=== PATIENT | female | born 1980 | race African-American/Black ===

== ENCOUNTER 2017-05-12 21:17 | Inpatient (IN) | payer BC ==
[2017-05-12 22:53] LABS: ABSOLUTE LYMPHOCYTES (AUTO) 0.6 10^3/uL (0.5-4.7); ABSOLUTE MONOCYTES (AUTO) 0.1 10^3/uL (0.1-1.4); ABSOLUTE NEUT (AUTO) 3.4 10^3/uL (1.7-8.2); BASOPHILS % (AUTO) 0.4 % (0-2); HEMATOCRIT 38.9 % (36.0-47.0); HEMOGLOBIN 12.7 g/dL (12.0-15.5); HGB HCT DIFFERENCE -0.8; LYMPHOCYTES % (AUTO) 14.7 % (13-45); MEAN CORPUSCULAR HEMOGLOBIN 24.4 pg (27.0-33.4); MEAN CORPUSCULAR HGB CONC 32.7 g/dL (32.0-36.0); MEAN CORPUSCULAR VOLUME 75 fl (80-97); MONOCYTES % (AUTO) 3.6 % (3-13); RED BLOOD COUNT 5.21 10^6/uL (3.72-5.28); SEGMENTED NEUTROPHILS % (AUTO) 80.3 % (42-78); WHITE BLOOD COUNT 4.2 10^3/uL (4.0-10.5)
--- NOTE | 2017-05-12 23:15 | ER Document Report ---
ED Fever - General Chief Complaint: Fever Stated Complaint: MUSCLE ACHES Time Seen by Provider: 05/12/17 23:14 Notes: The patient is a 36-year-old female who presents with 1 day of a fever, headache , neck stiffness and body aches that started after she was at her daughter's soccer game yesterday. 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 She is having worsening neck stiffness and pain when she turns her head or moves her hips. She is also having mild dysuria. Denies nausea, vomiting, blurry vision, focal weakness, numbness, tingling, ataxia, rash, recent travel or altered mental status. TRAVEL OUTSIDE OF THE [place] IN LAST 30 DAYS: No - Related Data Allergies/Adverse Reactions: Sulfa (Sulfonamide Antibiotics) Adverse Reaction (Verified 05/12/17 21:51) HEADACHE Past Medical History - General Information source: Patient - Social History Smoking Status: Never Smoker Family History: Reviewed & Not Pertinent Patient has suicidal ideation: No Patient has homicidal ideation: No - Past Medical History Cardiac Medical History: Denies: Hx Coronary Artery Disease, Hx Heart Attack, Hx Hypertension Pulmonary Medical History: Denies: Hx Asthma, Hx Bronchitis, Hx COPD, Hx Pneumonia Neurological Medical History: Denies: Hx Cerebrovascular Accident, Hx Seizures Renal/ Medical History: Denies: Hx Peritoneal Dialysis GI Medical History: Reports: Hx Gastroesophageal Reflux Disease. Denies: Hx Hepatitis, Hx Hiatal Hernia, Hx Ulcer Musculoskeltal Medical History: Denies Hx Arthritis Infectious Medical History: Denies: Hx Hepatitis Past Surgical History: Reports: Hx Section, Hx Tubal Ligation. Denies : Hx Hysterectomy, Hx Mastectomy, Hx Open Heart Surgery, Hx Pacemaker - Immunizations Hx Diphtheria, Pertussis, Tetanus Vaccination: Yes Review of Systems - Review of Systems Notes: REVIEW OF SYSTEMS: CONSTITUTIONAL: +fevers, -chills EENT: -eye pain, -difficulty swallowing, -nasal congestion CARDIOVASCULAR:-chest pain, -syncope. RESPIRATORY: -cough, -SOB GASTROINTESTINAL: -abdominal pain, - nausea, -vomiting, -diarrhea GENITOURINARY: -dysuria, -hematuria MUSCULOSKELETAL: +neck stiffness, -back pain SKIN: -rash or skin lesions. HEMATOLOGIC: -easy bruising or bleeding. LYMPHATIC: -swollen, enlarged glands. NEUROLOGICAL: -altered mental status or loss of consciousness, +headache, - neurologic symptoms PSYCHIATRIC: -anxiety, -depression. ALL OTHER SYSTEMS REVIEWED AND NEGATIVE. Physical Exam - Vital signs Vitals: Temp Pulse Resp BP Pulse Ox 101.3 F H 111 H 16 148/102 H 100 05/12/17 21:52 05/12/17 21:52 05/12/17 21:52 05/12/17 21:52 05/12/17 21:52 - Notes Notes: PHYSICAL EXAMINATION: GENERAL: Uncomfortable. Febrile. HEAD: Atraumatic, normocephalic. EYES: Pupils equal round and reactive to light, extraocular movements intact, sclera anicteric, conjunctiva are normal. ENT: nares patent, oropharynx clear without exudates. Moist mucous membranes. NECK: Painful passive ROM. Positive Kernig and Brudzinski tests. LUNGS: Breath sounds clear to auscultation bilaterally and equal. No wheezes rales or rhonchi. HEART: Tachycardia. Regular rhythm. ABDOMEN: Soft, nontender, normoactive bowel sounds. No guarding, no rebound. No masses appreciated. EXTREMITIES: Normal range of motion, no pitting or edema. No cyanosis. NEUROLOGICAL: Cranial nerves grossly intact. Normal speech. Normal sensory and motor exams. PSYCH: Normal mood, normal affect. SKIN: Warm, Dry, normal turgor, no rashes or lesions noted. Course - Re-evaluation Re-evalutation: Patient with fever, headache and neck stiffness for the past day. She appears uncomfortable and has positive Kernig and Brudzinski tests on exam. Concern for meningitis. Bacterial is a possibility, but viral is more likely. Attempted lumbar puncture three times in the emergency room, but unsuccessful. Antibiotics started for bacterial and acyclovir started for possible HSV meningitis. Consult placed for lumbar puncture under fluoroscopy, but unable to perform until the morning. She also has evidence of a UTI with some dysuria. Will admit patient to her primary care physician, Dr. Fiore, for continued IV antibiotics and lumbar puncture in the morning. 05/13/17 01:[address] Fiore and he has accepted patient to inpatient telemetry. 05/13/17 01:36 Spoke to Emery Wheel Molder to arrange LP under Fluoroscopy in am. - Vital Signs Vital signs: Temp Pulse Resp BP Pulse Ox 101.3 F H 111 H 16 148/102 H 100 05/12/17 21:52 05/12/17 21:52 05/12/17 21:52 05/12/17 21:52 05/12/17 21:52 - Laboratory Result Diagrams: 05/12/17 22:43 05/13/17 00:08 Laboratory results interpreted by me: 05/12/17 05/12/17 05/13/17 22:43 23:32 00:08 MCV 75 L MCH 24.4 L RDW 17.0 H Seg Neutrophils % 80.3 H Direct Bilirubin 0.5 H AST 99 H ALT 94 H Total Protein 8.4 H Urine Blood SMALL H Ur Leukocyte Esterase LARGE H - Diagnostic Test Radiology reviewed: Image reviewed, Reports reviewed Radiology results interpreted by me: CT Head: NAD CXR: NAD Procedures - Lumbar Puncture Lumbar puncture Time completed: 01:24 Consent obtained: Yes Lumbar puncture pre-procedure: Sterile PPE donned, Betadine prep applied, Sterile drapes applied Patient position: Lying Needle size: 22 Lumbar puncture location: L3-L4 Anesthetic type: 1% Lidocaine mL's of anesthetic: 10 Amount/type of drainage: None Number of attempts: 3 Complications: No Notes: Unsuccessful LP Discharge - Discharge Clinical Impression: Neck stiffness Headache Qualifiers: Headache type: unspecified Headache chronicity pattern: unspecified pattern Intractability: not intractable Qualified Code(s): R51 - Headache Fever Qualifiers: Fever type: unspecified Qualified Code(s): R50.9 - Fever, unspecified UTI (urinary tract infection) Qualifiers: Urinary tract infection type: acute cystitis Hematuria presence: without hematuria Qualified Code(s): N30.00 - Acute cystitis without hematuria Condition: Stable Disposition: ADMITTED INPATIENT [facility] Admitted: Telemetry
[2017-05-12] MEDS ORDERED: ACETAMINOPHEN 325 MG TABLET PO ONE (23:23)
[2017-05-12] MEDS ORDERED: VANCOMYCIN HCL INJ 1000 MG VIAL IV ONE (23:23)
[2017-05-12] MEDS ORDERED: CEFTRIAXONE 2 GM/D5W RTU 2 GM/50 ML RTUPB IV ONE (23:23)
[2017-05-12] MEDS ORDERED: LIDOCAINE 1% INJ-PF (10 MG/ML) 30 ML SDV INJ ONE (23:49)
[2017-05-12] MEDS ORDERED: NORMAL SALINE 1000 ML 1,000 ML IV ONE (23:51)
--- NOTE | 2017-05-12 23:53 | RADIOLOGY REPORT (SQ) ---
EXAM DESCRIPTION: CT HEAD WITHOUT COMPLETED DATE/TIME: 05/12/2017 11:45 pm REASON FOR STUDY: headache, fever COMPARISON: None. TECHNIQUE: Axial images acquired through the brain without intravenous contrast. Images reviewed wi th bone, brain and subdural windows. Images stored on PACS. All CT scanners at this facility use dose modulation, iterative reconstruction, and/or weight based d osing when appropriate to reduce radiation dose to as low as reasonably achievable (ALARA). [facility]: Dose Right [facility]: CareDose [facility]: Dose Right [facility]: Teradose 4D [facility]: Cloud9 IDE RADIATION DOSE: mGy. LIMITATIONS: None. FINDINGS: VENTRICLES: Normal size and contour. CEREBRUM: No masses. No hemorrhage. No midline shift. No evidence for acute infarction. Normal gra y/white matter differentiation. No areas of low density in the white matter. CEREBELLUM: No masses. No hemorrhage. No alteration of density. No evidence for acute infarction. EXTRAAXIAL SPACES: No fluid collections. No masses. ORBITS AND GLOBE: No intra- or extraconal masses. Normal contour of globe without masses. CALVARIUM: No fracture. PARANASAL SINUSES: Right maxillary mucous retention cyst. SOFT TISSUES: No mass or hematoma. OTHER: No other significant finding. IMPRESSION: No acute intracranial findings. COMMENT: Quality ID # [id number]: Final reports with documentation of one or more dose reduction techniques (e.g., Automated exposure control, adjustment of the mA and/or kV according to patient size, use of iterative reconstruction technique) TECHNICAL DOCUMENTATION: JOB ID: [id number] [employer]- All Rights Reserved
[2017-05-13] LABS: APPEARANCE,URINE SLIGHTLY-CLOUDY; BILIRUBIN,URINE NEGATIVE (NEGATIVE); GLUCOSE, URINE NEGATIVE (NEGATIVE); KETONES,URINE NEGATIVE (NEGATIVE); LEUKOCYTE ESTERASE,URINE LARGE (NEGATIVE); NITRITE,URINE NEGATIVE (NEGATIVE); PROTEIN,URINE NEGATIVE (NEGATIVE); URINE SPECIFIC GRAVITY 1.008; UROBILINOGEN,URINE NEGATIVE mg/dL (<2.0)
--- NOTE | 2017-05-13 00:02 | RADIOLOGY REPORT (SQ) ---
EXAM DESCRIPTION: CHEST PA/LAT COMPLETED DATE/TIME: 05/12/2017 11:53 pm REASON FOR STUDY: cough, fever COMPARISON: None. NUMBER OF VIEWS: Two view. TECHNIQUE: Frontal and lateral radiographic views of the chest acquired. LIMITATIONS: None. FINDINGS: LUNGS AND PLEURA: Peribronchial cuffing and interstitial changes. No consolidation, effus ion, or pneumothorax. MEDIASTINUM AND HILAR STRUCTURES: No masses. No contour abnormalities. HEART AND VASCULAR STRUCTURES: Heart normal in size and contour. No evidence for failure. BONES: No acute findings. HARDWARE: None in the chest. OTHER: No other significant finding. IMPRESSION: REACTIVE AIRWAY DISEASE VERSUS VIRAL SYNDROME. NO CONSOLIDATION. TECHNICAL DOCUMENTATION: JOB ID: [id number] [employer] All Rights Reserved
[2017-05-13] MEDS ORDERED: MIDAZOLAM 2 MG/2 ML INJ ONE (00:40)
[2017-05-13] MEDS ORDERED: MORPHINE SULFATE 10 MG/ML INJ ONE (00:46)
[2017-05-13 00:50] LABS: ALANINE AMINOTRANSFERASE 94 U/L (9-52); ALBUMIN 4.6 g/dL (3.5-5.0); ALKALINE PHOSPHATASE 124 U/L (38-126); ANION GAP 14 (5-19); ASPARTATE AMINO TRANSFERASE 99 U/L (14-36); BILIRUBIN,DIRECT 0.5 mg/dL (0.0-0.4); BILIRUBIN,TOTAL 0.7 mg/dL (0.2-1.3); BLOOD UREA NITROGEN 12 mg/dL (7-20); CALCIUM 10.2 mg/dL (8.4-10.2); CARBON DIOXIDE 22 mmol/L (22-30); CHLORIDE 103 mmol/L (98-107); CREATININE RESULT 0.82 mg/dL (0.52-1.25); GLUCOSE 99 mg/dL (75-110); POTASSIUM 4.4 mmol/L (3.6-5.0); SODIUM 139.3 mmol/L (137-145); TOTAL PROTEIN 8.4 g/dL (6.3-8.2)
[2017-05-13] MEDS ORDERED: ACYCLOVIR SODIUM INJ/PF 500 MG/10 ML SDV IV ONE (01:14)
[2017-05-13] MEDS ORDERED: NORMAL SALINE 1000 ML 1,000 ML IV PRN (04:16)
[2017-05-13] MEDS ORDERED: VANCOMYCIN HCL 0 MG in DEXTROSE 5%-WATER 250 ML IV NR (04:30)
[2017-05-13 05:04] LABS: THYROID STIMULATING HORMONE 0.58 uIU/mL (0.47-4.68)
[2017-05-13] MEDS ORDERED: ACYCLOVIR SODIUM 500 MG in NORMAL SALINE 100 ML IV SCH (06:00)
[2017-05-13 06:26] LABS: PROTHROMBIN TIME 13.9 SEC (11.4-15.4)
[2017-05-13] MEDS ORDERED: ACETAMINOPHEN 325 MG TABLET ONE (07:08)
[2017-05-13] MEDS: DEXAMETHASONE SOD PHOS INJ 10 MG/1 ML VIAL IV SCH ×2 (07:08→13:10)
[2017-05-13] MEDS ORDERED: ACETAMINOPHEN 325 MG TABLET PO PRN (07:18)
--- NOTE | 2017-05-13 09:37 | RADIOLOGY REPORT (SQ) ---
EXAM DESCRIPTION: LUMBAR PUNCTURE COMPLETED DATE/TIME: 05/13/2017 9:25 am REASON FOR STUDY: ? MENINGITIS COMPARISON: None. FLUOROSCOPY TIME: 30 seconds 2 digital images saved to PACS. TECHNIQUE: Fluoroscopic guided lumbar puncture. LIMITATIONS: None. PROCEDURE: After written consent and assessment were obtained, the patient was brought into the fluo roscopy room and placed prone on the table. The patient's lower back was prepped in a sterile fashio n and an entry site was selected under live fluoroscopic guidance. The entry site was anesthetized wi th 1% lidocaine. A long 20 gauge needle was advanced through the skin and into the thecal sac at the right paracentral L2-3 level. After approximately 8 ml was drained, the needle was removed and a ster ile bandage was placed of the site. Specimens were sent to the lab for testing. A fluoroscopic spot image was saved to PACS confirming level access. FINDINGS: Clear CSF Opening pressure 18 cm of water, closing pressure 13 cm of water. Specimens were sent for testing. IMPRESSION: Lumbar puncture under fluoroscopy. No immediate complication. COMMENT: Patient medication list reviewed: Yes- Quality ID# [id number]:Eligible professional attests to doc umenting in the medical record they obtained, updated, or reviewed the patient's current medications. . Quality ID 145: Final reports for procedures using fluoroscopy that document radiation exposure casey saad, or exposure time and number of fluorographic images (if radiation exposure indices are not avail able) TECHNICAL DOCUMENTATION: JOB ID: [id number] [employer]- All Rights Reserved
[2017-05-13] MEDS ORDERED: VANCOMYCIN HCL 1,500 MG in DEXTROSE 5%-WATER 250 ML IV SCH (10:00)
[2017-05-13] MEDS ORDERED: CEFTRIAXONE 1 GM/D5W RTU 1 GM/50 ML RTUPB IV SCH (10:00)
[2017-05-13 11:04] LABS: GLUCOSE,CSF 66 mg/dL (40-70)
[2017-05-13 11:26] LABS: H. INFLUENZAE TYPE B AG NEGATIVE (NEGATIVE); S. PNEUMONIAE AG NEGATIVE (NEGATIVE); STREP. GROUP B AG NEGATIVE (NEGATIVE)
[2017-05-13 11:28] LABS: CSF CULTURED REQUIRED CSF CULTURE ORDERED (CSFY)
[2017-05-13 11:31] LABS: APPEARANCE ALL TUBES CLEAR
[2017-05-13 11:52] LABS: RBC SIDE 1 0; RBC SIDE 2 0
[2017-05-13 11:53] LABS: RBC DILUENT USED NONE USED; RBC DILUTION FACTOR 1
[2017-05-13 11:56] LABS: TOTAL RBC SQUARES COUNTED 225
[2017-05-13 11:59] LABS: WHITE BLOOD CELL,CSF 0 /uL (0-5)
[2017-05-13] MEDS: ACYCLOVIR SODIUM 500 MG in NORMAL SALINE 100 ML IV SCH ×2 (13:07→18:08)
--- NOTE | 2017-05-13 16:39 | PDOC H&P ---
History of Present Illness Admission Date/PCP: 05/13/17 04:16 History of Present Illness: ORLANDO SMITH is a 36 year old female, She came to the emergency room last night with complaint of 1 day history of fever, neck stiffness, headache and dysuria. In the emergency room she was evaluated meningitis was suspected she was empirically started on IV antibiotic including ceftriaxone, vancomycin and also antiviral acyclovir. She also complained of dysuria the urinalysis was grossly abnormal. A CAT scan of the head was done it was negative for any acute pathology. A lumbar puncture could not be done immediately last night actually it was attempted in the emergency room but it was unsuccessful. This morning a fluoroscopic guided lumbar puncture was done, the CSF was clear, there was no white blood cells the protein and the glucose was normal the initial antigen for N. meningitis was negative. She was empirically started on dexamethasone based on 0.15 mg/kg body weight IV every 6 hours because of the suspicion for meningitis. It also seemed that she has UTI, she has urinary symptoms with grossly abnormal urinalysis. The differential diagnosis could be meningismus other than meningitis. Past Medical History Endocrine Medical History: Reports: Obesity GI Medical History: Reports: Gastroesophageal Reflux Disease Hematology: Reports: Anemia Denies: Sickle Cell Disease Past Surgical History Past Surgical History: Reports: Section, Tubal Ligation Social History Smoking Status: Never Smoker Frequency of Alcohol Use: None Hx Recreational Drug Use: No Drugs: None Hx Prescription Drug Abuse: No Family History Family History: Reviewed & Not Pertinent Parental Family History Reviewed: Yes Children Family History Reviewed: Yes Sibling(s) Family History Reviewed.: Yes Medication/Allergy Home Medications: Esomeprazole Magnesium [Nexium] 40 mg PO DAILY 05/13/17 Montelukast Sodium [Singulair] 10 mg PO QPM 05/13/17 Phentermine HCl [Adipex-P] 37.5 mg PO DAILY 05/13/17 Allergies/Adverse Reactions: Sulfa (Sulfonamide Antibiotics) Adverse Reaction (Verified 05/12/17 21:51) HEADACHE Review of Systems Constitutional: PRESENT: chills, fever(s), headache(s) Eyes: ABSENT: visual disturbances Ears: ABSENT: hearing changes Cardiovascular: ABSENT: chest pain, dyspnea on exertion, edema, orthropnea, palpitations Respiratory: ABSENT: cough, hemoptysis Gastrointestinal: ABSENT: abdominal pain, constipation, diarrhea, hematemesis, hematochezia, nausea, vomiting Genitourinary: ABSENT: dysuria, hematuria Musculoskeletal: ABSENT: joint swelling Integumentary: ABSENT: rash, wounds Neurological: ABSENT: abnormal gait, abnormal speech, confusion, dizziness, focal weakness, syncope Psychiatric: ABSENT: anxiety, depression, homidical ideation, suicidal ideation Endocrine: ABSENT: cold intolerance, heat intolerance, menstrual abnormalities, polydipsia, polyuria Hematologic/Lymphatic: ABSENT: easy bleeding, easy bruising, lymphadenopathy Physical Exam Vital Signs: Temp Pulse Resp BP Pulse Ox 97.9 F 85 15 122/62 100 05/13/17 12:16 05/13/17 12:16 05/13/17 12:16 05/13/17 12:16 05/13/17 12:16 Intake & Output 05/12/17 05/13/17 05/14/17 06:59 06:59 06:59 Intake Total 0 240 Output Total 0 Balance 0 240 Weight 134.3 kg General appearance: PRESENT: no acute distress, well-developed, well-nourished Head exam: PRESENT: atraumatic, normocephalic Eye exam: PRESENT: PERRLA Ear exam: PRESENT: normal external ear exam Neck exam: PRESENT: full ROM, meningismus Respiratory exam: PRESENT: clear to auscultation adam Cardiovascular exam: PRESENT: RRR, +S1, +S2 Vascular exam: PRESENT: normal capillary refill GI/Abdominal exam: PRESENT: normal bowel sounds, soft Rectal exam: PRESENT: deferred Neurological exam: PRESENT: alert Psychiatric exam: PRESENT: appropriate affect, normal mood Skin exam: PRESENT: dry, intact, warm Results Laboratory Results: 05/13/17 05/13/17 05/13/17 09:15 09:15 09:15 Fluid Tube Number 3 CSF Volume 8.0 CSF Appearance CLEAR CSF Color COLORLESS CSF WBC 0 CSF RBC 0 CSF Comment CSF CULTURE ORDERED CSF Glucose 66 CSF Total Protein 47 05/13/17 05/13/17 05/13/17 05:18 05:18 11:08 Creatine Kinase 248 H 233 H CK-MB (CK-2) 0.57 05/13/17 11:08 Creatine Kinase CK-MB (CK-2) 0.59 Impressions: Chest X-Ray 05/12/17 23:22 IMPRESSION: REACTIVE AIRWAY DISEASE VERSUS VIRAL SYNDROME. NO CONSOLIDATION. Head CT 05/12/17 23:22 IMPRESSION: No acute intracranial findings. Lumbar Puncture 05/13/17 04:22 IMPRESSION: Lumbar puncture under fluoroscopy. No immediate complication. Assessment & Plan - Diagnosis (1) Urinary tract infection Qualifiers: Urinary tract infection type: site unspecified Hematuria presence: without hematuria Qualified Code(s): N39.0 - Urinary tract infection, site not specified Is this a current diagnosis for this admission?: Yes Plan: Continue ceftriaxone (2) Meningismus Is this a current diagnosis for this admission?: Yes Plan: She probably of meningismus due to fever from UTI but it was appropriate to treat empirically for meningitis since it was suspected, but lumbar puncture was done this morning and it was negative so meningitis is virtually rule out, the Decadron, vancomycin, meningitic dose of ceftriaxone will be discontinued she will continue ceftriaxone for presumed UTI.
[2017-05-14] MEDS: ACYCLOVIR SODIUM 500 MG in NORMAL SALINE 100 ML IV SCH ×2 (02:54→11:04)
[2017-05-14 06:48] LABS: HEMATOCRIT 34.2 % (36.0-47.0); HEMOGLOBIN 10.9 g/dL (12.0-15.5); HGB HCT DIFFERENCE -1.5; MEAN CORPUSCULAR HGB CONC 31.8 g/dL (32.0-36.0); MEAN CORPUSCULAR VOLUME 75 fl (80-97); RED BLOOD COUNT 4.54 10^6/uL (3.72-5.28); RED CELL DISTRIBUTION WIDTH 17.5 % (11.5-14.0); WHITE BLOOD COUNT 5.8 10^3/uL (4.0-10.5)
[2017-05-14 07:03] LABS: ANION GAP 11 (5-19); BLOOD UREA NITROGEN 11 mg/dL (7-20); CALCIUM 10.1 mg/dL (8.4-10.2); CARBON DIOXIDE 22 mmol/L (22-30); CHLORIDE 108 mmol/L (98-107); CREATININE RESULT 0.58 mg/dL (0.52-1.25); GLUCOSE 163 mg/dL (75-110); POTASSIUM 4.4 mmol/L (3.6-5.0); SODIUM 140.5 mmol/L (137-145)
[2017-05-14] MEDS ORDERED: CEFTRIAXONE 1 GM/D5W RTU 1 GM/50 ML RTUPB IV SCH (10:00)
[2017-05-14 10:28] LABS: CREATININE RESULT 0.66 mg/dL (0.52-1.25)
--- NOTE | 2017-05-14 13:39 | Physician Advisory Note ---
Physician Advisor ProgressNote .: Pursuant to the plan for [facility], I have reviewed the medical record for this patient. Physician Advisor Statement: FYI Coders: Pt met Sepsis-2 criteria but not Sepsis-3 criteria. Does not appear to have been tx'd as sepsis, & attending has not mentioned this dx as a possibility. I would recommend against querying for sepsis possibility in this pt. CK
[2017-05-14 15:07] VITALS: BP 114/69
[2017-05-14 21:08] LABS: HSV I DNA Negative (Negative)
[2017-05-15 08:26] LABS: HSV SOURCE CSF
[2017-05-15 15:39] LABS: ALPHA-2-GLOBULIN 2.3 % (3.0-12.6); CSF PE BETA GLOBULIN 14.1 % (7.3-17.9); TOTAL PROTEIN CSF PE 34.8 mg/dL (0.0-44.0)
[2017-05-16 07:12] LABS: CSF PE GAMMA GLOBULIN 13.6 % (3.0-13.0); PROT ELEC MSPIKE Not Observed % (Not Observed)
--- NOTE | 2017-05-19 21:59 | PDOC DISCHARGE SUMMARY ---
General - Admit/Disc Date/PCP Admission Date/Primary Care Provider: 05/13/17 04:16 Discharge Date: 05/14/17 - Discharge Diagnosis (1) Urinary tract infection Is this a current diagnosis for this admission?: Yes (2) Meningismus Is this a current diagnosis for this admission?: Yes - Additional Information Discharge Diet: As Tolerated Discharge Activity: Activity As Tolerated Home Medications: Esomeprazole Magnesium [Nexium] 40 mg PO DAILY 05/13/17 Montelukast Sodium [Singulair] 10 mg PO QPM 05/13/17 Phentermine HCl [Adipex-P] 37.5 mg PO DAILY 05/13/17 Fluconazole [Diflucan] 150 mg PO ONCE PRN #1 tablet 05/14/17 Levofloxacin [Levaquin 750 mg Tablet] 750 mg PO DAILY #5 tablet 05/14/17 History of Present Illness History of Present Illness: ORLANDO SMITH is a 36 year old female, She came to the emergency room last night with complaint of 1 day history of fever, neck stiffness, headache and dysuria. In the emergency room she was evaluated meningitis was suspected she was empirically started on IV antibiotic including ceftriaxone, vancomycin and also antiviral acyclovir. She also complained of dysuria the urinalysis was grossly abnormal. A CAT scan of the head was done it was negative for any acute pathology. A lumbar puncture could not be done immediately last night actually it was attempted in the emergency room but it was unsuccessful. This morning a fluoroscopic guided lumbar puncture was done, the CSF was clear, there was no white blood cells the protein and the glucose was normal the initial antigen for N. meningitis was negative. She was empirically started on dexamethasone based on 0.15 mg/kg body weight IV every 6 hours because of the suspicion for meningitis. It also seemed that she has UTI, she has urinary symptoms with grossly abnormal urinalysis. The differential diagnosis could be meningismus other than meningitis. Hospital Course Hospital Course: See H&P for details, patient was admitted when she presented with fever neck , stiffness she was empirically treated for meningitis with IV antibiotic Rocephin , vancomycin and acyclovir, lumbar puncture was done under fluoroscopy, it was negative for any infection or any pathology. She also had a UTI, she was treated for UTI the neck stiffness was assumed to be meningismus due to UTI Physical Exam Vital Signs: Temp Pulse Resp BP Pulse Ox 97.8 F 69 16 114/69 99 05/14/17 15:02 05/14/17 15:02 05/14/17 15:02 05/14/17 15:02 05/14/17 15:02 General appearance: PRESENT: no acute distress, well-developed, well-nourished Head exam: PRESENT: atraumatic, normocephalic Eye exam: PRESENT: conjunctiva pink, EOMI, PERRLA Ear exam: PRESENT: normal external ear exam Mouth exam: PRESENT: moist, tongue midline Neck exam: PRESENT: full ROM Cardiovascular exam: PRESENT: RRR, +S1, +S2 Pulses: PRESENT: normal dorsalis pedis pul, +2 pedal pulses bilateral Vascular exam: PRESENT: normal capillary refill GI/Abdominal exam: PRESENT: normal bowel sounds, soft Rectal exam: PRESENT: deferred Neurological exam: PRESENT: alert, awake, oriented to person, oriented to place , oriented to time, oriented to situation, CN II-XII grossly intact Psychiatric exam: PRESENT: appropriate affect, normal mood Skin exam: PRESENT: dry, intact, warm Results Laboratory Results: 05/14/17 06:15 05/14/17 09:39 05/13/17 05/13/17 05/13/17 05:18 05:18 11:08 Creatine Kinase 248 H 233 H CK-MB (CK-2) 0.57 05/13/17 05/13/17 05/13/17 11:08 16:55 16:55 Creatine Kinase 265 H CK-MB (CK-2) 0.59 0.83 Impressions: Chest X-Ray 05/12/17 23:22 IMPRESSION: REACTIVE AIRWAY DISEASE VERSUS VIRAL SYNDROME. NO CONSOLIDATION. Head CT 05/12/17 23:22 IMPRESSION: No acute intracranial findings. Lumbar Puncture 05/13/17 04:22 IMPRESSION: Lumbar puncture under fluoroscopy. No immediate complication.
== END 2017-05-14 15:45 | disposition home or self-care (01) | DRG 690 ==
LOC: ER 21:17 → EH 05-13 01:45 → UNDOADMIN 05-13 01:45 → EH 05-13 04:05 → 4N 05-13 04:05 → EH 05-13 04:16
PROVIDERS: ADMIT Internal Medicine; ATTEND Internal Medicine
PROC: 009U3ZZ Drainage of Spinal Canal, Percutaneous Approach (ICD-10-PCS; principal; 2017-05-13)
DX: N39.0 Urinary tract infection, site not specified (principal); R29.1 Meningismus; Z68.42 Body mass index [BMI] 45.0-49.9, adult; K21.9 Gastro-esophageal reflux disease without esophagitis; E66.9 Obesity, unspecified; D64.9 Anemia, unspecified; Z79.899 Other long term (current) drug therapy; Z88.2 Allergy status to sulfonamides
CPT/HCPCS: 36415; 62270; 70450; 71020; 80048; 80053; 80202; 81001; 82550; 82553; 82565; 82945; 83916; 84157; 84166; 84439; 84443; 84703; 85025; 85027; 85610; 86403; 87040; 87070; 87205; 87210; 87252; 87529; 87804; 89050; 96365; 99284; J0133; J0696; J1100; J3370; J3490; J7030; J7060

== ENCOUNTER 2018-03-02 06:05 | Day surgery (SDC) | payer BC ==
--- NOTE | 2018-02-18 09:38 | EKG REPORT ---
SEVERITY:- NORMAL ECG - SINUS RHYTHM : Confirmed by: Hadley Arroyo 18-Feb-2018 09:37:49
[2018-02-18 10:26] LABS: ALANINE AMINOTRANSFERASE 38 U/L (9-52); ALBUMIN 4.5 g/dL (3.5-5.0); ALKALINE PHOSPHATASE 88 U/L (38-126); ANION GAP 13 (5-19); ASPARTATE AMINO TRANSFERASE 34 U/L (14-36); BILIRUBIN,DIRECT 0.4 mg/dL (0.0-0.4); BILIRUBIN,TOTAL 0.4 mg/dL (0.2-1.3); BLOOD UREA NITROGEN 15 mg/dL (7-20); CALCIUM 9.8 mg/dL (8.4-10.2); CARBON DIOXIDE 24 mmol/L (22-30); CHLORIDE 105 mmol/L (98-107); GLUCOSE 92 mg/dL (75-110); POTASSIUM 4.7 mmol/L (3.6-5.0); SODIUM 141.9 mmol/L (137-145); TOTAL PROTEIN 8.1 g/dL (6.3-8.2)
[2018-02-18 10:45] LABS: APPEARANCE,URINE CLOUDY; BILIRUBIN,URINE NEGATIVE (NEGATIVE); COLOR,URINE YELLOW; GLUCOSE, URINE NEGATIVE (NEGATIVE); KETONES,URINE NEGATIVE (NEGATIVE); LEUKOCYTE ESTERASE,URINE SMALL (NEGATIVE); NITRITE,URINE NEGATIVE (NEGATIVE); PROTEIN,URINE 100 mg/dL (NEGATIVE); URINE SPECIFIC GRAVITY 1.023; UROBILINOGEN,URINE NEGATIVE mg/dL (<2.0)
[2018-02-18 12:14] LABS: HEMATOCRIT 33.7 % (36.0-47.0); HEMOGLOBIN 10.7 g/dL (12.0-15.5); MEAN CORPUSCULAR HEMOGLOBIN 22.6 pg (27.0-33.4); MEAN CORPUSCULAR HGB CONC 31.7 g/dL (32.0-36.0); MEAN CORPUSCULAR VOLUME 71 fl (80-97); PLATELET COUNT 250 10^3/uL (150-450); RED BLOOD COUNT 4.73 10^6/uL (3.72-5.28); RED CELL DISTRIBUTION WIDTH 18.7 % (11.5-14.0); WHITE BLOOD COUNT 4.5 10^3/uL (4.0-10.5)
--- NOTE | 2018-02-18 14:03 | RADIOLOGY REPORT (SQ) ---
EXAM DESCRIPTION: CHEST PA/LATERAL COMPLETED DATE/TIME: 02/18/2018 9:43 am REASON FOR STUDY: PRE-OP COMPARISON: 05/12/2017 two-view chest EXAM PARAMETERS: NUMBER OF VIEWS: two views TECHNIQUE: Digital Frontal and Lateral radiographic views of the chest acquired. RADIATION DOSE: NA LIMITATIONS: none FINDINGS: LUNGS AND PLEURA: No opacities, masses or pneumothorax. No pleural effusion. MEDIASTINUM AND HILAR STRUCTURES: No masses or contour abnormalities. HEART AND VASCULAR STRUCTURES: Stable moderate cardiomegaly BONES: No acute findings. HARDWARE: None in the chest. OTHER: No other significant finding. IMPRESSION: NO SIGNIFICANT RADIOGRAPHIC FINDING IN THE CHEST. TECHNICAL DOCUMENTATION: JOB ID: [id number] [employer]- All Rights Reserved Reading location - IP/workstation name: [email or web address]
[~2018-03-02 06:05] MED LIST: CEFAZOLIN 1 GM/D5W RTU 1 GM/50 ML RTUPB IV PRN; LACTATED RINGERS 1000 ML IV PRN; LIDOCAINE 0.5% INJ-PF (5 MG/ML) 50 ML SDV SUBCUT PRN
[2018-03-02] MEDS ORDERED: SCOPOLAMINE HYDROBROMIDE 1.5 MG PATCH.TD72 ONE (06:37)
[2018-03-02] MEDS ORDERED: MIDAZOLAM 2 MG/2 ML INJ ONE (06:48)
[2018-03-02] MEDS ORDERED: FENTANYL CITRATE INJ/PF 250 MCG/5 ML AMPULE ONE (06:48)
[2018-03-02] MEDS ORDERED: MORPHINE SULFATE 10 MG/ML INJ ONE (06:49)
[2018-03-02] MEDS ORDERED: PROPOFOL INJ 200 MG/20 ML VIAL IV ONE (06:49)
[2018-03-02] MEDS ORDERED: ACETAMINOPHEN 1,000 MG/100 ML RTUPB IV ONE (06:49)
[2018-03-02] MEDS ORDERED: BUPIVACAINE HCL 0.25 % INJ/PF (2.5 MG/1 ML) 30 ML VIAL ONE (06:57)
[2018-03-02] MEDS ORDERED: PROMETHAZINE HCL INJ 25 MG/1 ML VIAL IV PRN ×2 (07:51)
[2018-03-02] MEDS ORDERED: DIPHENHYDRAMINE HCL 50 MG/ML VIAL IV PRN (07:51)
[2018-03-02] MEDS ORDERED: MEPERIDINE HCL/PF INJ 25 MG/1 ML DISP.SYRIN IV PRN (07:51)
[2018-03-02] MEDS ORDERED: MORPHINE SULFATE 10 MG/ML INJ IV PRN (07:51)
[2018-03-02] MEDS ORDERED: FENTANYL CITRATE INJ/PF 100 MCG/2 ML AMPUL IV PRN ×3 (07:51)
[2018-03-02] MEDS ORDERED: OXYCODONE-ACETAMINOPHEN 5-325 MG TABLET PO PRN (09:29)
[2018-03-02] MEDS ORDERED: ONDANSETRON 4 MG TAB.RAPDIS PO PRN (09:29)
[2018-03-02] MEDS: FENTANYL CITRATE INJ/PF 100 MCG/2 ML AMPUL ONE ×2 (09:44→09:49)
[2018-03-02] MEDS ORDERED: KETOROLAC TROMETHAMINE INJ/PF 30 MG/1 ML SDV ONE (09:52)
--- NOTE | 2018-03-02 11:05 | OPERATIVE REPORT E ---
Operative Report NAME: ORLANDO SMITH : 1980 AGE: 37Y DATE OF SURGERY: 03/02/2018 ROOM: PREOPERATIVE DIAGNOSIS: Menometrorrhagia. POSTOPERATIVE DIAGNOSES: 1. Menometrorrhagia. 2. Fibroids. 3. Adhesions. OPERATION: Total hysterectomy via robotics with bilateral salpingectomy. SURGEON: Chanel SILVERMAN M.D. ANESTHESIA: General. ESTIMATED BLOOD LOSS: Approximately 100 mL. TISSUE REMOVED: Uterus and both tubes. PROCEDURE: The patient was placed in a dorsal lithotomy position, prepped, and draped in the usual sterile fashion. A speculum was placed and the cervix visualized and grasped with a single-toothed tenaculum, sounded to about 14 cm. A uterine manipulator was placed per protocol. Attention was turned to the abdomen where a supraumbilical incision was made in the midline. A trocar was introduced for introduction of the laparoscope. Multiple adhesions were noted from the omentum to the anterior abdominal wall. A puncture was made left to the midline and a 5 trocar was introduced. A third was made to the right and a 5 was introduced. Using cautery the adhesions were taken down and then a fourth incision was made just above the suprailiac crest on the right. The robot was docked in the usual fashion. Using the robotic arms, monopolar and bipolar cautery, the right fallopian tube was removed and taken out through the accessory port. The left was done in likewise fashion. The uterus was then removed by dividing the broad ligament down to the level of the uterine arteries using bipolar cautery. Bladder flap was created with sharp dissection and the circumferential incision was made, and the uterus was removed. The cuff was inspected. Hemostasis was noted. Cuff was closed with 0 Vicryl in running fashion. The bladder was irrigated with normal saline and again hemostasis was noted. The robot was undocked, the instruments removed, the abdomen deflated, and trocar sleeves removed. The supraumbilical and accessory ports were closed using 0 Vicryl to close the fascia, 4-0 Vicryl for the skin. The 2 punctures were closed using Dermabond. The patient's urine remained clear throughout the procedure. She was taken to the recovery room in good condition. DICTATING PHYSICIAN: Chanel SILVERMAN M.D. [id number] PHY#: [id number] ID: [id number] JOB#: [id number] ACCT: [id number] cc:Chanel SILVERMAN M.D. >
[2018-03-02] MEDS: IBUPROFEN 800 MG TABLET PO SCH ×2 (13:46→21:52)
[2018-03-02] MEDS ORDERED: DEXAMETHASONE SOD PHOSPHATE INJ 4 MG/1 ML VIAL ONE (13:56)
[2018-03-02] MEDS ORDERED: ONDANSETRON HCL INJ/PF 4 MG/2 ML SDV ONE (13:56)
[2018-03-02] MEDS ORDERED: ROCURONIUM BROMIDE INJ 50 MG/5 ML VIAL IV ONE (13:56)
[2018-03-02] MEDS ORDERED: SUCCINYLCHOLINE CHLORIDE INJ 200 MG/10 ML VIAL ONE (13:56)
[2018-03-02] MEDS ORDERED: MONTELUKAST SODIUM 10 MG TABLET PO SCH (18:00)
[2018-03-03] MEDS ORDERED: LANSOPRAZOLE 30 MG TAB.RAP.DR PO SCH (06:00)
[2018-03-03] MEDS: IBUPROFEN 800 MG TABLET PO SCH (06:09)
--- NOTE | 2018-03-03 07:29 | PDOC DISCHARGE SUMMARY ---
General - Admit/Disc Date/PCP Admission Date/Primary Care Provider: MERON CUMMINGS MD Discharge Date: 03/03/18 - Discharge Diagnosis (1) Menorrhagia Is this a current diagnosis for this admission?: Yes - Additional Information Discharge Diet: As Tolerated, Regular Discharge Activity: Activity As Tolerated, Balance Activity w/Rest, No Driving, No Lifting Over 10 Pounds, No Lifting/Push/Pulling, Pelvic Rest, No tub bath Home Medications: Esomeprazole Magnesium [Nexium] 40 mg PO DAILY 05/13/17 Montelukast Sodium [Singulair] 10 mg PO QPM 05/13/17 History of Present Illness History of Present Illness: ORLANDO SMITH is a 37 year old female Hospital Course Hospital Course: pt had robotic assisted hyst she has rmained afebrile and is tolerating regular diet and ambulating without difficulty Physical Exam - Physical Exam Vital Signs: Temp Pulse Resp BP Pulse Ox 97.9 F 68 18 113/65 100 03/03/18 04:00 03/03/18 04:00 03/03/18 04:00 03/03/18 04:00 03/03/18 04:00 Intake & Output 03/02/18 03/03/18 03/04/18 06:59 06:59 06:59 Intake Total 0 3025 Output Total 1125 Balance 0 1900 Weight 136 kg 142 kg General appearance: PRESENT: no acute distress Respiratory exam: PRESENT: clear to auscultation adam Musculoskeletal exam: PRESENT: ambulatory Result Laboratory Results: 02/18/18 09:20 02/18/18 09:05 Impressions: Chest X-Ray 02/18/18 09:33 IMPRESSION: NO SIGNIFICANT RADIOGRAPHIC FINDING IN THE CHEST. Plan Discharge Plan: d/c f/u 1 week Time Spent: Less than 30 Minutes
[2018-03-03 09:30] VITALS: BP 108/60
== END 2018-03-03 09:46 | disposition home or self-care (01) ==
LOC: OROUT 06:05 → 2N 10:49 → OROUT 03-03 09:46
PROVIDERS: ATTEND Obstetrics & Gynecology Gynecology
DX: N92.1 Excessive and frequent menstruation with irregular cycle (principal); D25.9 Leiomyoma of uterus, unspecified; K66.0 Peritoneal adhesions (postprocedural) (postinfection); N72 Inflammatory disease of cervix uteri; N80.0 Endometriosis of uterus; E66.9 Obesity, unspecified; Z68.42 Body mass index [BMI] 45.0-49.9, adult; Z79.899 Other long term (current) drug therapy; Z01.818 Encounter for other preprocedural examination
CPT/HCPCS: 58571; S2900; 36415; 71046; 80053; 81001; 81025; 840; 85027; 86850; 86900; 86901; 93005; 93010; J0131; J0330; J0690; J1100; J1885; J2250; J2270; J2405; J2704; J3010; J3490

== ENCOUNTER 2018-03-30 20:39 | Emergency (ER) | payer BC ==
[2018-03-30] MEDS ORDERED: NORMAL SALINE 1000 ML 1,000 ML IV ONE (21:26)
[2018-03-30] MEDS ORDERED: ONDANSETRON HCL INJ/PF 4 MG/2 ML SDV IV ONE (21:27)
--- NOTE | 2018-03-30 21:55 | ER Document Report ---
ED General - General Chief Complaint: Abdominal Pain Stated Complaint: NAUSEA/STOMACH PAIN Time Seen by Provider: 03/30/18 21:11 Mode of Arrival: Ambulatory Information source: Patient, Relative, [facility] Records Notes: 37-year-old female with no reported past medical history presents with complaint of nausea and epigastric discomfort. Patient states symptoms started 4 days prior to arrival after taking her first dose of Bactrim for a urinary tract infection. Patient had a hysterectomy postop appointment with Dr. East on Friday where there was concern for urinary tract infection and started on Bactrim. Patient states that she ate [employer] and then took her first dose and since that time has been extremely nauseated. She denies any lower abdominal pain, vomiting, diarrhea. Patient states that she has been constipated due to the pain medication provided for surgery. She did take milk of magnesia and has had 2 loose stools today. Patient reports poor p.o. intake. He denies any fever, chills, chest pain, shortness of breath. TRAVEL OUTSIDE OF THE [place] IN LAST 30 DAYS: No - HPI Onset: Other Onset/Duration: Gradual, Persistent, Worse Quality of pain: No pain Severity: None Associated symptoms: Nausea Exacerbated by: Denies Relieved by: Denies Similar symptoms previously: No Recently seen / treated by doctor: Yes - Related Data Allergies/Adverse Reactions: Sulfa (Sulfonamide Antibiotics) Adverse Reaction (Verified 05/12/17 21:51) HEADACHE Past Medical History - General Information source: Patient, [facility] Records - Social History Smoking Status: Never Smoker Frequency of alcohol use: None Drug Abuse: None Lives with: Spouse/Significant other Family History: Reviewed & Not Pertinent Patient has suicidal ideation: No Patient has homicidal ideation: No - Past Medical History Cardiac Medical History: Denies: Hx Coronary Artery Disease, Hx Heart Attack, Hx Hypertension Pulmonary Medical History: Denies: Hx Asthma, Hx Bronchitis, Hx COPD, Hx Pneumonia Neurological Medical History: Denies: Hx Cerebrovascular Accident, Hx Seizures Renal/ Medical History: Denies: Hx Peritoneal Dialysis GI Medical History: Reports: Hx Gastroesophageal Reflux Disease. Denies: Hx Hepatitis, Hx Hiatal Hernia, Hx Ulcer Musculoskeletal Medical History: Denies Hx Arthritis Psychiatric Medical History: Denies: Hx Depression Infectious Medical History: Denies: Hx Hepatitis Past Surgical History: Reports: Hx Section, Hx Tubal Ligation. Denies : Hx Hysterectomy, Hx Mastectomy, Hx Open Heart Surgery, Hx Pacemaker - Immunizations Hx Diphtheria, Pertussis, Tetanus Vaccination: Yes Review of Systems - Review of Systems Notes: REVIEW OF SYSTEMS: CONSTITUTIONAL : Denies fever, chills, or sweats. Denies recent illness. Denies weight loss, recent hospitalizations. EENT: Denies visual changes, eye pain. Denies nasal or sinus congestion or discharge. Denies sore throat, oral lesions, difficulty swallowing. CARDIOVASCULAR: Denies chest pain. Denies palpitations. Denies lower extremity edema. RESPIRATORY: Denies cough, cold, or chest congestion. Denies shortness of breath, wheezing. GASTROINTESTINAL: Denies distention. Denies vomiting, or diarrhea. Denies blood in vomitus, stools, or per rectum. Denies black, tarry stools. Denies constipation. GENITOURINARY: Denies difficulty urinating, painful urination, frequency, blood in urine, or vaginal discharge. MUSCULOSKELETAL: Denies back or neck pain or stiffness. Denies joint pain or swelling. SKIN: Denies rash, lesions or sores. HEMATOLOGIC : Denies easy bruising or bleeding. LYMPHATIC: Denies swollen glands. NEUROLOGICAL: Denies confusion or altered mental status. Denies passing out or loss of consciousness. Denies dizziness or lightheadedness. Denies headache. Denies weakness or paralysis. Denies problems difficulty with ambulation, slurred speech. Denies sensory loss, numbness, or tingling. Denies seizures. PSYCHIATRIC: Denies anxiety or stress. Denies depression, suicidal ideation, or homicidal ideation. Denies visual or auditory hallucinations. Physical Exam - Vital signs Vitals: Temp Pulse Resp BP Pulse Ox 98.5 F 92 16 144/89 H 100 03/30/18 20:47 03/30/18 20:47 03/30/18 20:47 03/30/18 20:47 03/30/18 20:47 Interpretation: Hypertensive. No: Tachycardic, Febrile - Notes Notes: PHYSICAL EXAMINATION: GENERAL: Well-appearing, well-nourished and in no acute distress. HEAD: Atraumatic, normocephalic. EYES: Pupils equal round and reactive to light, extraocular movements intact, conjunctiva are normal. ENT: Nares patent, oropharynx clear without exudates. Moist mucous membranes. NECK: Normal range of motion, supple without lymphadenopathy LUNGS: Breath sounds clear to auscultation bilaterally and equal. No wheezes rales or rhonchi. HEART: Regular rate and rhythm without murmurs ABDOMEN: Soft, nontender, nondistended abdomen. No guarding, no rebound. No masses appreciated. Female : deferred Musculoskeletal: Normal range of motion, no pitting or edema. No cyanosis. NEUROLOGICAL: Cranial nerves grossly intact. Normal speech, normal gait. Normal sensory, motor exams PSYCH: Normal mood, normal affect. SKIN: Warm, Dry, normal turgor, no rashes or lesions noted. Course - Re-evaluation Re-evalutation: 37-year-old female with no reported past medical history presents with complaint of nausea and epigastric discomfort. Patient states symptoms started 4 days prior to arrival after taking her first dose of Bactrim for a urinary tract infection. Patient was seen by myself upon arrival. Vital signs were reviewed. Patient is afebrile, normotensive and not hypoxic. Patient does not appear toxic or dehydrated. They are in no acute distress. Previous medical records and nursing notes reviewed. 03/30/18 22:49 Patient reevaluated after receiving Zofran and IV fluids. She reports an improvement of her nausea. She will be discharged home with Zofran. Patient states that she did speak to the doctor's office today who told her she does not need an antibiotic because the urine culture was normal. 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 Prescriptions: Ondansetron [Zofran Odt 4 mg Tablet] 1 - 2 tab PO Q4H PRN #15 tab.rapdis PRN Reason: For Nausea/Vomiting Referrals: MERON CUMMINGS MD [Primary Care Provider] - Follow up as needed
[2018-03-31 00:11] VITALS: BP 143/75
== END 2018-03-30 23:40 | disposition home or self-care (01) ==
LOC: ER 20:39
DX: R10.816 Epigastric abdominal tenderness (principal); R11.0 Nausea; Z90.710 Acquired absence of both cervix and uterus; Z87.19 Personal history of other diseases of the digestive system; Z98.51 Tubal ligation status
CPT/HCPCS: 99284; 96361; 96374; J2405; J7030

== ENCOUNTER 2018-04-02 13:43 | Inpatient (IN) | payer BC ==
--- NOTE | 2018-04-02 14:27 | ER Document Report ---
ED Medical Screen (RME) - General Chief Complaint: Abdominal Pain Stated Complaint: GALLBLADDER/DIRECT ADMIT Mode of Arrival: Ambulatory TRAVEL OUTSIDE OF THE [place] IN LAST 30 DAYS: No - HPI Patient complains to provider of: abd pain Onset: Other - pt sent from Dr. Torres's office for direct admit for cholecystectomy - Related Data Allergies/Adverse Reactions: Sulfa (Sulfonamide Antibiotics) Adverse Reaction (Verified 04/02/18 13:45) HEADACHE Past Medical History - Social History Frequency of alcohol use: None Drug Abuse: None - Past Medical History Cardiac Medical History: Denies: Hx Coronary Artery Disease, Hx Heart Attack, Hx Hypertension Pulmonary Medical History: Reports: Hx Asthma Denies: Hx Bronchitis, Hx COPD, Hx Pneumonia Neurological Medical History: Denies: Hx Cerebrovascular Accident, Hx Seizures Renal/ Medical History: Denies: Hx Peritoneal Dialysis GI Medical History: Reports: Hx Gastroesophageal Reflux Disease. Denies: Hx Hepatitis, Hx Hiatal Hernia, Hx Ulcer Musculoskeltal Medical History: Denies Hx Arthritis Psychiatric Medical History: Denies: Hx Depression Infectious Medical History: Denies: Hx Hepatitis Past Surgical History: Reports: Hx Section, Hx Hysterectomy, Hx Tubal Ligation. Denies: Hx Mastectomy, Hx Open Heart Surgery, Hx Pacemaker - Immunizations Hx Diphtheria, Pertussis, Tetanus Vaccination: Yes History of Influenza Vaccine for 06/2017 - 10/2017 Season: Yes Influenza Administration Date for 06/2017 - 10/2017 Season: 06/01/17 Physical Exam - Vital signs Vitals: Temp Pulse Resp BP Pulse Ox 99.7 F 77 17 138/78 H 97 04/02/18 13:51 04/02/18 13:51 04/02/18 13:51 04/02/18 13:51 04/02/18 13:51 Course - Vital Signs Vital signs: Temp Pulse Resp BP Pulse Ox 99.7 F 77 17 138/78 H 97 04/02/18 13:51 04/02/18 13:51 04/02/18 13:51 04/02/18 13:51 04/02/18 13:51
--- NOTE | 2018-04-02 15:48 | ER Document Report ---
ED GI/ - General Chief Complaint: Abdominal Pain Stated Complaint: GALLBLADDER/DIRECT ADMIT Mode of Arrival: Ambulatory TRAVEL OUTSIDE OF THE [place] IN LAST 30 DAYS: No - HPI Patient complains to provider of: Abdominal pain - RUQ Timing/Duration: Gradual Quality of pain: Achy, Dull Severity at maximum: Moderate Severity in ED: Moderate Pain Level: 4 Location: RUQ Vaginal bleeding (Compared to normal period): None OB ultrasound done: No vitamins taken: No Associated symptoms: None Exacerbated by: Denies Relieved by: Denies Similar symptoms previously: No Recently seen / treated by doctor: Yes - Related Data Allergies/Adverse Reactions: Sulfa (Sulfonamide Antibiotics) Adverse Reaction (Verified 04/02/18 13:45) HEADACHE Past Medical History - Social History Smoking Status: Never Smoker Frequency of alcohol use: None Drug Abuse: None Family History: Reviewed & Not Pertinent Patient has suicidal ideation: No Patient has homicidal ideation: No - Past Medical History Cardiac Medical History: Denies: Hx Coronary Artery Disease, Hx Heart Attack, Hx Hypertension Pulmonary Medical History: Reports: Hx Asthma Denies: Hx Bronchitis, Hx COPD, Hx Pneumonia Neurological Medical History: Denies: Hx Cerebrovascular Accident, Hx Seizures Renal/ Medical History: Denies: Hx Peritoneal Dialysis GI Medical History: Reports: Hx Gastroesophageal Reflux Disease. Denies: Hx Hepatitis, Hx Hiatal Hernia, Hx Ulcer Musculoskeletal Medical History: Denies Hx Arthritis Psychiatric Medical History: Denies: Hx Depression Infectious Medical History: Denies: Hx Hepatitis Past Surgical History: Reports: Hx Section, Hx Hysterectomy, Hx Tubal Ligation. Denies: Hx Mastectomy, Hx Open Heart Surgery, Hx Pacemaker - Immunizations Hx Diphtheria, Pertussis, Tetanus Vaccination: Yes Review of Systems - Review of Systems Constitutional: denies: Chills, Fever EENT: No symptoms reported Cardiovascular: No symptoms reported Respiratory: No symptoms reported Gastrointestinal: Abdominal pain Genitourinary: No symptoms reported Female Genitourinary: No symptoms reported Musculoskeletal: No symptoms reported Skin: No symptoms reported Hematologic/Lymphatic: No symptoms reported Neurological/Psychological: No symptoms reported -: Yes All other systems reviewed and negative Physical Exam - Vital signs Vitals: Temp Pulse Resp BP Pulse Ox 99.7 F 77 17 138/78 H 97 04/02/18 13:51 04/02/18 13:51 04/02/18 13:51 04/02/18 13:51 04/02/18 13:51 - General General appearance: Appears well, Alert In distress: None - HEENT Head: Normocephalic, Atraumatic Eyes: Normal Pupils: PERRL - Respiratory Respiratory status: No respiratory distress Chest status: Nontender Breath sounds: Normal Chest palpation: Normal - Cardiovascular Rhythm: Regular Heart sounds: Normal auscultation Murmur: No - Abdominal Inspection: Obese Distension: No distension Bowel sounds: Normal Tenderness: Tender - RUQ Organomegaly: No organomegaly - Back Back: Normal, Nontender - Extremities General upper extremity: Normal inspection, Nontender, Normal color, Normal ROM , Normal temperature General lower extremity: Normal inspection, Nontender, Normal color, Normal ROM , Normal temperature, Normal weight bearing. No: Jose Alberto's sign - Neurological Neuro grossly intact: Yes Cognition: Normal Orientation: AAOx4 Karen Coma Scale Eye Opening: Spontaneous [place] Coma Scale Verbal: Oriented Karen Coma Scale Motor: Obeys Commands Helotes Coma Scale Total: 15 Speech: Normal Motor strength normal: LUE, RUE, LLE, RLE Sensory: Normal - Psychological Associated symptoms: Normal affect, Normal mood - Skin Skin Temperature: Warm Skin Moisture: Dry Skin Color: Normal Course - Vital Signs Vital signs: Temp Pulse Resp BP Pulse Ox 99.7 F 77 17 138/78 H 97 04/02/18 13:51 04/02/18 13:51 04/02/18 13:51 04/02/18 13:51 04/02/18 13:51 - Diagnostic Test Radiology reviewed: Image reviewed, Reports reviewed - Transfer of Care Notes: 04/02/18 15:47 Patient will be admitted by Dr. Fiore the primary doctor to the hospital for further evaluation and management. Discharge - Discharge Clinical Impression: Acute calculous cholecystitis Condition: Stable Disposition: ADMITTED INPATIENT Admitting Provider: [facility] Unit Admitted: Surgical Floor
[2018-04-02] MEDS ORDERED: AMPICILLIN SOD/SULBACTAM 3 GM VIAL IV ONE (15:49)
[2018-04-02 16:12] LABS: ABSOLUTE EOSINOPHILS # (AUTO) 0.1 10^3/uL (0.0-0.6); ABSOLUTE LYMPHOCYTES (AUTO) 1.7 10^3/uL (0.5-4.7); ABSOLUTE MONOCYTES (AUTO) 0.2 10^3/uL (0.1-1.4); ABSOLUTE NEUT (AUTO) 2.5 10^3/uL (1.7-8.2); BASOPHILS % (AUTO) 0.8 % (0-2); EOSINOPHILS % (AUTO) 1.7 % (0-6); HEMATOCRIT 30.4 % (36.0-47.0); HEMOGLOBIN 9.6 g/dL (12.0-15.5); LYMPHOCYTES % (AUTO) 37.7 % (13-45); MEAN CORPUSCULAR HEMOGLOBIN 21.2 pg (27.0-33.4); MEAN CORPUSCULAR HGB CONC 31.8 g/dL (32.0-36.0); MEAN CORPUSCULAR VOLUME 67 fl (80-97); MONOCYTES % (AUTO) 4.7 % (3-13); PLATELET COUNT 288 10^3/uL (150-450); RED BLOOD COUNT 4.54 10^6/uL (3.72-5.28); RED CELL DISTRIBUTION WIDTH 18.2 % (11.5-14.0); SEGMENTED NEUTROPHILS % (AUTO) 55.1 % (42-78); TOTAL CELLS COUNTED % (AUTO) 100 %; WHITE BLOOD COUNT 4.6 10^3/uL (4.0-10.5)
[2018-04-02] MEDS ORDERED: RINGERS SOLUTION,LACTATED 1,000 ML IV PRN (16:17)
[2018-04-02] MEDS ORDERED: KETOROLAC TROMETHAMINE 10 MG TABLET PO PRN (16:18)
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
[2018-04-02 16:32] LABS: ALANINE AMINOTRANSFERASE 308 U/L (9-52); ALBUMIN 4.2 g/dL (3.5-5.0); ALKALINE PHOSPHATASE 135 U/L (38-126); AMYLASE 72 U/L (30-110); ANION GAP 14 (5-19); ASPARTATE AMINO TRANSFERASE 194 U/L (14-36); BILIRUBIN,DIRECT 0.4 mg/dL (0.0-0.4); BILIRUBIN,TOTAL 0.8 mg/dL (0.2-1.3); BLOOD UREA NITROGEN 9 mg/dL (7-20); CALCIUM 9.8 mg/dL (8.4-10.2); CARBON DIOXIDE 26 mmol/L (22-30); CHLORIDE 102 mmol/L (98-107); GLUCOSE 89 mg/dL (75-110); LIPASE 196.6 U/L (23-300); POTASSIUM 3.7 mmol/L (3.6-5.0); SODIUM 141.6 mmol/L (137-145); TOTAL PROTEIN 7.7 g/dL (6.3-8.2)
--- NOTE | 2018-04-02 17:13 | PDOC H&P ---
History of Present Illness Admission Date/PCP: 04/02/18 14:14 MERON CUMMINGS MD History of Present Illness: ORLANDO SMITH is a 37 year old female, she came to the office today for evaluation of epigastric pain, she recently had total hysterectomy on 2017 she was in the emergency room on 2017 for evaluation of epigastric pain, abdominal pain she stated that her symptoms started after she ate [employer], in the emergency room she said she was evaluated she was given IV fluids and she was discharged home. She admitted to vomiting, she said she is not able to keep any food down, the pain is aggravated with food intake, she was tender on palpation of the epigastrium, acute cholelithiasis was suspected, a stat ultrasound was obtained, it demonstrated multiple gallstones associated with thickening of the gallbladder wall with pericholecystic fluid consistent with acute calculus cholecystitis. She was advised to be admitted directly to the hospital but they have no bed available in the hospital and she was directed by the nurse split and drum room supervisor to the emergency room. She would need interval cholecystectomy, consultation will be obtained from surgery Past Medical History Cardiac Medical History: Denies: Coronary Artery Disease, Myocardial Infarction, Hypertension Pulmonary Medical History: Reports: Asthma Denies: Bronchitis, Chronic Obstructive Pulmonary Disease (COPD), Pneumonia Neurological Medical History: Denies: Seizures GI Medical History: Reports: Gastroesophageal Reflux Disease Denies: Hepatitis, Hiatal Hernia Musculoskeltal Medical History: Denies: Arthritis Psychiatric Medical History: Denies: Depression Hematology: Reports: Anemia Denies: Sickle Cell Disease Past Surgical History Past Surgical History: Reports: Section, Hysterectomy, Tubal Ligation Social History Smoking Status: Never Smoker Frequency of Alcohol Use: None Hx Recreational Drug Use: No Drugs: None Hx Prescription Drug Abuse: No Family History Family History: Reviewed & Not Pertinent Parental Family History Reviewed: Yes Children Family History Reviewed: Yes Sibling(s) Family History Reviewed.: Yes Medication/Allergy Home Medications: Cholecalciferol (Vitamin D3) [Vitamin D3 1000 Unit Tablet] 1,000 unit PO DAILY 04/02/18 Montelukast Sodium [Singulair 10 mg Tablet] 10 mg PO QHS 04/02/18 Allergies/Adverse Reactions: Sulfa (Sulfonamide Antibiotics) Adverse Reaction (Verified 04/02/18 18:14) HEADACHE Review of Systems Constitutional: PRESENT: fatigue Eyes: ABSENT: visual disturbances Ears: ABSENT: hearing changes Cardiovascular: ABSENT: chest pain, dyspnea on exertion, edema, orthropnea, palpitations Respiratory: ABSENT: cough, hemoptysis Gastrointestinal: PRESENT: abdominal pain, diarrhea, vomiting Genitourinary: ABSENT: dysuria, hematuria Musculoskeletal: ABSENT: joint swelling Integumentary: ABSENT: rash, wounds Neurological: ABSENT: abnormal gait, abnormal speech, confusion, dizziness, focal weakness, syncope Psychiatric: ABSENT: anxiety, depression, homidical ideation, suicidal ideation Endocrine: ABSENT: cold intolerance, heat intolerance, menstrual abnormalities, polydipsia, polyuria Hematologic/Lymphatic: ABSENT: easy bleeding, easy bruising, lymphadenopathy Physical Exam Vital Signs: Temp Pulse Resp BP Pulse Ox 99.7 F 77 17 138/78 H 97 04/02/18 13:51 04/02/18 13:51 04/02/18 13:51 04/02/18 13:51 04/02/18 13:51 General appearance: PRESENT: mild distress Head exam: PRESENT: atraumatic, normocephalic Eye exam: PRESENT: conjunctiva pink, EOMI, PERRLA Ear exam: PRESENT: normal external ear exam Mouth exam: PRESENT: moist, tongue midline Neck exam: PRESENT: full ROM Respiratory exam: PRESENT: clear to auscultation adam Cardiovascular exam: PRESENT: RRR, +S1, +S2 Pulses: PRESENT: normal dorsalis pedis pul, +2 pedal pulses bilateral Vascular exam: PRESENT: normal capillary refill GI/Abdominal exam: PRESENT: normal bowel sounds, soft, tenderness - In the epigastrium Rectal exam: PRESENT: deferred Neurological exam: PRESENT: alert, awake, oriented to person, oriented to place , oriented to time, oriented to situation, CN II-XII grossly intact Psychiatric exam: PRESENT: appropriate affect, normal mood Skin exam: PRESENT: dry, intact, warm Results Laboratory Results: 04/02/18 16:03 04/02/18 16:03 04/02/18 04/02/18 16:03 16:03 WBC 4.6 RBC 4.54 Hgb 9.6 L Hct 30.4 L MCV 67 L MCH 21.2 L MCHC 31.8 L RDW 18.2 H Plt Count 288 Seg Neutrophils % 55.1 Lymphocytes % 37.7 Monocytes % 4.7 Eosinophils % 1.7 Basophils % 0.8 Absolute Neutrophils 2.5 Absolute Lymphocytes 1.7 Absolute Monocytes 0.2 Absolute Eosinophils 0.1 Absolute Basophils 0.0 Sodium 141.6 Potassium 3.7 Chloride 102 Carbon Dioxide 26 Anion Gap 14 BUN 9 Creatinine 0.61 Est GFR ( Amer) > 60 Est GFR (Non-Af Amer) > 60 Glucose 89 Calcium 9.8 Total Bilirubin 0.8 AST 194 H ALT 308 H Alkaline Phosphatase 135 H Total Protein 7.7 Albumin 4.2 Amylase 72 Lipase 196.6 Assessment & Plan - Diagnosis (1) Gallbladder calculus with acute cholecystitis Qualifiers: Biliary obstruction: without biliary obstruction Qualified Code(s): K80.00 - Calculus of gallbladder with acute cholecystitis without obstruction Is this a current diagnosis for this admission?: Yes
[2018-04-02] MEDS: KETOROLAC TROMETHAMINE INJ/PF 30 MG/1 ML SDV IV PRN (17:16)
[2018-04-02] MEDS ORDERED: MORPHINE SULFATE 10 MG/ML INJ IV ONE (20:38)
[2018-04-02] MEDS: CEFAZOLIN 1 GM/D5W RTU 1 GM/50 ML RTUPB IV SCH (20:46)
[2018-04-02] MEDS: ONDANSETRON HCL INJ/PF 4 MG/2 ML SDV IV PRN (20:47)
[2018-04-02] MEDS ORDERED: AMPICILLIN SOD/SULBACTAM 3 GM VIAL IV PRN (22:50)
[2018-04-03] MEDS: CEFAZOLIN 1 GM/D5W RTU 1 GM/50 ML RTUPB IV SCH ×2 (02:05→10:36)
[2018-04-03] MEDS: AMPICILLIN SODIUM/SULBACTAM NA 3 GM in NORMAL SALINE 100 ML IV SCH ×3 (05:38→21:17)
[2018-04-03] MEDS ORDERED: PROPOFOL INJ 200 MG/20 ML VIAL IV ONE ×2 (08:12→12:11)
[2018-04-03] MEDS ORDERED: MORPHINE SULFATE 10 MG/ML INJ ONE ×2 (08:12→15:28)
[2018-04-03] MEDS ORDERED: MIDAZOLAM 2 MG/2 ML INJ ONE ×2 (08:12→12:11)
[2018-04-03] MEDS ORDERED: FENTANYL CITRATE INJ/PF 250 MCG/5 ML AMPULE ONE (08:12)
[2018-04-03] MEDS ORDERED: ACETAMINOPHEN 0 MG/0 ML RTUPB IV ONE (08:13)
[2018-04-03] MEDS ORDERED: BUPIVACAINE HCL 0.25% /EPINEPHRINE INJ/PF 30 ML SDV ONE (08:40)
[2018-04-03 08:48] LABS: ABSOLUTE EOSINOPHILS # (AUTO) 0.1 10^3/uL (0.0-0.6); ABSOLUTE LYMPHOCYTES (AUTO) 1.9 10^3/uL (0.5-4.7); ABSOLUTE MONOCYTES (AUTO) 0.2 10^3/uL (0.1-1.4); ABSOLUTE NEUT (AUTO) 1.8 10^3/uL (1.7-8.2); BASOPHILS % (AUTO) 0.8 % (0-2); EOSINOPHILS % (AUTO) 3.4 % (0-6); HEMATOCRIT 29.8 % (36.0-47.0); HEMOGLOBIN 9.6 g/dL (12.0-15.5); LYMPHOCYTES % (AUTO) 46.7 % (13-45); MEAN CORPUSCULAR HEMOGLOBIN 21.3 pg (27.0-33.4); MEAN CORPUSCULAR HGB CONC 32.1 g/dL (32.0-36.0); MEAN CORPUSCULAR VOLUME 66 fl (80-97); MONOCYTES % (AUTO) 5.6 % (3-13); PLATELET COUNT 274 10^3/uL (150-450); RED CELL DISTRIBUTION WIDTH 18.5 % (11.5-14.0); SEGMENTED NEUTROPHILS % (AUTO) 43.5 % (42-78); TOTAL CELLS COUNTED % (AUTO) 100 %; WHITE BLOOD COUNT 4.1 10^3/uL (4.0-10.5)
[2018-04-03 09:12] LABS: ALANINE AMINOTRANSFERASE 311 U/L (9-52); ALBUMIN 3.7 g/dL (3.5-5.0); ALKALINE PHOSPHATASE 118 U/L (38-126); ANION GAP 13 (5-19); ASPARTATE AMINO TRANSFERASE 194 U/L (14-36); BILIRUBIN,DIRECT 0.4 mg/dL (0.0-0.4); BILIRUBIN,TOTAL 0.7 mg/dL (0.2-1.3); BLOOD UREA NITROGEN 10 mg/dL (7-20); CALCIUM 9.4 mg/dL (8.4-10.2); CARBON DIOXIDE 24 mmol/L (22-30); CHLORIDE 104 mmol/L (98-107); GLUCOSE 89 mg/dL (75-110); LIPASE 133.9 U/L (23-300); SODIUM 141.4 mmol/L (137-145); TOTAL PROTEIN 7.1 g/dL (6.3-8.2)
[2018-04-03] MEDS ORDERED: LIDOCAINE 2% INJ-PF (20 MG/ML) 10 ML AMPUL ONE (12:10)
[2018-04-03] MEDS ORDERED: FENTANYL CITRATE INJ/PF 100 MCG/2 ML AMPUL ONE (12:10)
[2018-04-03] MEDS ORDERED: KETOROLAC TROMETHAMINE 60 MG/2 ML SDV ONE (12:10)
[2018-04-03] MEDS ORDERED: ONDANSETRON HCL INJ/PF 4 MG/2 ML SDV ONE (12:11)
[2018-04-03] MEDS ORDERED: ACETAMINOPHEN 1,000 MG/100 ML RTUPB IV ONE (12:11)
[2018-04-03] MEDS ORDERED: DEXAMETHASONE SOD PHOSPHATE INJ 4 MG/1 ML VIAL ONE (12:11)
[2018-04-03] MEDS ORDERED: FENTANYL CITRATE INJ/PF 100 MCG/2 ML AMPUL IV PRN ×3 (13:49)
[2018-04-03] MEDS ORDERED: MORPHINE SULFATE 10 MG/ML INJ IV PRN (13:49)
[2018-04-03] MEDS ORDERED: ONDANSETRON HCL INJ/PF 4 MG/2 ML SDV IV PRN (13:49)
[2018-04-03] MEDS ORDERED: PROMETHAZINE HCL INJ 25 MG/1 ML VIAL IV PRN ×2 (13:49)
[2018-04-03] MEDS ORDERED: MEPERIDINE HCL/PF INJ 25 MG/1 ML DISP.SYRIN IV PRN (13:49)
[2018-04-03] MEDS ORDERED: DIPHENHYDRAMINE HCL 50 MG/ML VIAL IV PRN (13:49)
[2018-04-03] MEDS ORDERED: OXYCODONE-ACETAMINOPHEN 5-325 MG TABLET PO PRN (15:06)
[2018-04-03] MEDS: FENTANYL CITRATE INJ/PF 100 MCG/2 ML AMPUL ONE ×2 (15:15→15:32)
[2018-04-03] MEDS ORDERED: PROMETHAZINE HCL INJ 25 MG/1 ML VIAL ONE (15:44)
[2018-04-03] MEDS ORDERED: SUCCINYLCHOLINE CHLORIDE INJ 200 MG/10 ML VIAL ONE (15:45)
[2018-04-03] MEDS ORDERED: VECURONIUM BROMIDE INJ 10 MG VIAL IV ONE (15:45)
[2018-04-03] MEDS ORDERED: GLYCOPYRROLATE INJ 0.4 MG/2 ML VIAL ONE (15:45)
[2018-04-03] MEDS ORDERED: NEOSTIGMINE METHYLSULFATE 10 MG/10 ML VIAL ONE (15:45)
--- NOTE | 2018-04-03 17:00 | OPERATIVE REPORT E ---
Operative Report NAME: ORLANDO SMITH : 1980 AGE: 37Y DATE OF SURGERY: 04/03/2018 ROOM: 404 PREOPERATIVE DIAGNOSIS: ACUTE ON CHRONIC CALCULUS CHOLECYSTITIS. OPERATION: Laparoscopic cholecystectomy. SURGEON: VIRGINIA SANDRA M.D. ANESTHESIA: General. INDICATION: This is a 37-year-old female with abdominal pain. She had an ultrasound of the gallbladder which showed stones in the gallbladder. She is tender in the right upper quadrant. PROCEDURE: After adequate general anesthesia, the patient was placed in supine position, and the abdomen prepped and draped in the usual sterile fashion. An infraumbilical incision is made and the fascia identified and divided between 2 Otis clamps. Finger dissection of the intraabdominal area was then performed. There were some adhesions noted close to the abdominal wall because of previous laparoscopic hysterectomy about 4 weeks ago. Jatin trocar was then inserted and CO2 insufflated to a pressure of 15 mmHg. Three other trocars were placed under direct vision, at 12 mm in the subxiphoid and two 5 mm right upper quadrant. The gallbladder was then identified and noted to be practically covered with omentum that was very adherent. Blunt dissection of the omentum around the gallbladder was performed with the use of Harmonic sherrell. The infundibulum was then lifted up, but unfortunately was quite difficult to identify the cystic duct because of fatty tissue. Because of this, another trocar was placed at the left upper quadrant using an 11 mm trocar. A fan retractor was placed, and at this time the cystic duct could be visualized. Dissection of the cystic duct was done. Cystic duct noted to be relatively small. It was then clipped with hemoclips close to the gallbladder. Cystic artery identified and subsequently clipped with hemoclips and divided with the use of Harmonic sherrell. Gallbladder was then taken off the liver bed with the use of Harmonic sherrell. Gallbladder was noted to be somewhat intrahepatic. It was quite difficult dissecting the gallbladder out. A small amount of bile extruded out through the region of the cystic duct site, where it came off. It was immediately grasped to prevent further spillage of bile. Gallbladder was then taken off completely from the liver bed, and adequate hemostasis noted. The gallbladder was placed in an Endobag and pulled out through the umbilical port. Trocars were put back, and CO2 again insufflated and the liver bed was inspected, and no active bleeding noted. It was further irrigated with saline solution. After adequate hemostasis noted, all the trocars were removed and CO2 allowed to come out through the trocar sites. The intraumbilical fascial defect was then closed with a [id number] suture using 0 Vicryl, and all the skin incisions closed with running subcuticular 4-0 Vicryl undyed. Sterile Dermabond was used as a dressing. The patient tolerated the procedure well. Needle, instrument, and sponge count were all correct. Estimated blood loss of about 20 mL. The patient was brought to the recovery room in satisfactory condition. DICTATING PHYSICIAN: VIRGINIA SANDRA M.D. [id number] PHY#: [id number] ID: [id number] JOB#: [id number] ACCT: [id number] cc:VIRGINIA SANDRA M.D. >
[2018-04-03] MEDS: ONDANSETRON HCL INJ/PF 4 MG/2 ML SDV IV PRN (20:16)
--- NOTE | 2018-04-03 20:33 | PDOC PROGRESS REPORT ---
Subjective Progress Note for:: 04/03/18 Subjective:: Patient was seen by the bedside, she had laparoscopic cholecystectomy today Reason For Visit: CHOLECYSTITIS Physical Exam Vital Signs: Temp Pulse Resp BP Pulse Ox 98.7 F 71 16 113/67 100 04/03/18 18:15 04/03/18 18:15 04/03/18 18:15 04/03/18 18:15 04/03/18 18:15 Intake & Output 04/02/18 04/03/18 04/04/18 06:59 06:59 06:59 Intake Total 318 3750 Output Total 915 Balance 318 2835 Weight 132.2 kg General appearance: PRESENT: no acute distress, well-developed, well-nourished Head exam: PRESENT: atraumatic, normocephalic Eye exam: PRESENT: conjunctiva pink, EOMI, PERRLA Ear exam: PRESENT: normal external ear exam Mouth exam: PRESENT: moist, tongue midline Neck exam: PRESENT: full ROM Respiratory exam: PRESENT: clear to auscultation adam Cardiovascular exam: PRESENT: RRR, +S1, +S2 Pulses: PRESENT: normal dorsalis pedis pul, +2 pedal pulses bilateral Vascular exam: PRESENT: normal capillary refill GI/Abdominal exam: PRESENT: normal bowel sounds, soft Rectal exam: PRESENT: deferred Neurological exam: PRESENT: alert, awake, oriented to person, oriented to place , oriented to time, oriented to situation, CN II-XII grossly intact Psychiatric exam: PRESENT: appropriate affect, normal mood Skin exam: PRESENT: dry, intact, warm Results Laboratory Results: 04/03/18 08:20 04/03/18 08:20 04/03/18 04/03/18 08:20 08:20 WBC 4.1 RBC 4.50 Hgb 9.6 L Hct 29.8 L MCV 66 L MCH 21.3 L MCHC 32.1 RDW 18.5 H Plt Count 274 Seg Neutrophils % 43.5 Lymphocytes % 46.7 H Monocytes % 5.6 Eosinophils % 3.4 Basophils % 0.8 Absolute Neutrophils 1.8 Absolute Lymphocytes 1.9 Absolute Monocytes 0.2 Absolute Eosinophils 0.1 Absolute Basophils 0.0 Sodium 141.4 Potassium 4.0 Chloride 104 Carbon Dioxide 24 Anion Gap 13 BUN 10 Creatinine 0.65 Est GFR ( Amer) > 60 Est GFR (Non-Af Amer) > 60 Glucose 89 Calcium 9.4 Total Bilirubin 0.7 AST 194 H ALT 311 H Alkaline Phosphatase 118 Total Protein 7.1 Albumin 3.7 Lipase 133.9 Assessment & Plan - Diagnosis (1) Gallbladder calculus with acute cholecystitis Qualifiers: Biliary obstruction: without biliary obstruction Qualified Code(s): K80.00 - Calculus of gallbladder with acute cholecystitis without obstruction Is this a current diagnosis for this admission?: Yes
[2018-04-03] MEDS: KETOROLAC TROMETHAMINE INJ/PF 30 MG/1 ML SDV IV PRN (21:20)
[2018-04-04] MEDS: KETOROLAC TROMETHAMINE INJ/PF 30 MG/1 ML SDV IV PRN (03:27)
[2018-04-04] MEDS: AMPICILLIN SODIUM/SULBACTAM NA 3 GM in NORMAL SALINE 100 ML IV SCH (06:04)
[2018-04-04 08:29] LABS: HEMATOCRIT 30.6 % (36.0-47.0); HEMOGLOBIN 9.8 g/dL (12.0-15.5); MEAN CORPUSCULAR HEMOGLOBIN 21.3 pg (27.0-33.4); MEAN CORPUSCULAR HGB CONC 31.9 g/dL (32.0-36.0); MEAN CORPUSCULAR VOLUME 67 fl (80-97); PLATELET COUNT 306 10^3/uL (150-450); RED BLOOD COUNT 4.58 10^6/uL (3.72-5.28); RED CELL DISTRIBUTION WIDTH 18.5 % (11.5-14.0); WHITE BLOOD COUNT 6.5 10^3/uL (4.0-10.5)
[2018-04-04 08:48] LABS: ALANINE AMINOTRANSFERASE 318 U/L (9-52); ALBUMIN 4.1 g/dL (3.5-5.0); ALKALINE PHOSPHATASE 120 U/L (38-126); ANION GAP 13 (5-19); ASPARTATE AMINO TRANSFERASE 169 U/L (14-36); BILIRUBIN,DIRECT 0.4 mg/dL (0.0-0.4); BILIRUBIN,TOTAL 0.7 mg/dL (0.2-1.3); BLOOD UREA NITROGEN 10 mg/dL (7-20); CALCIUM 9.8 mg/dL (8.4-10.2); CARBON DIOXIDE 25 mmol/L (22-30); CHLORIDE 103 mmol/L (98-107); GLUCOSE 100 mg/dL (75-110); LIPASE 74.9 U/L (23-300); SODIUM 141.4 mmol/L (137-145); TOTAL PROTEIN 7.7 g/dL (6.3-8.2)
[2018-04-04 09:34] LABS: ABSOLUTE LYMPHOCYTES# (MANUAL) 1.4 10^3/uL (0.5-4.7); ABSOLUTE MONOCYTES # (MANUAL) 0.2 10^3/uL (0.1-1.4); ABSOLUTE NEUTROPHILS# (MANUAL) 4.9 10^3/uL (1.7-8.2); BASOPHILS % (MANUAL) 0 % (0-2); EOSINOPHILS % (MANUAL) 0 % (0-6); LYMPHOCYTES % (MANUAL) 21 % (13-45); MONOCYTES % (MANUAL) 3 % (3-13); SEGMENTED NEUTROPHILS % (MAN) 75 % (42-78); TOTAL CELLS COUNTED 100
[2018-04-04 09:38] LABS: ANISOCYTOSIS 2+; HYPOCHROMASIA 1+; OVALOCYTES SLIGHT; PLATELET COMMENT ADEQUATE; POIKILOCYTOSIS 1+; POLYCHROMASIA 1+; SCHISTOCYTES SLIGHT; TEAR DROP CELLS SLIGHT
--- NOTE | 2018-04-04 11:45 | PDOC PROGRESS REPORT ---
Subjective Progress Note for:: 04/04/18 Subjective:: minimal incisional pains tolerating clears Reason For Visit: CHOLECYSTITIS Physical Exam Vital Signs: Temp Pulse Resp BP Pulse Ox 98.5 F 70 15 121/69 99 04/04/18 04:00 04/04/18 07:00 04/04/18 04:00 04/04/18 04:00 04/04/18 04:00 Intake & Output 04/03/18 04/04/18 04/05/18 06:59 06:59 06:59 Intake Total 318 4294 100 Output Total 915 Balance 318 3379 100 Weight 132.2 kg Exam: abdomen soft all incisions are clean and dry Results Laboratory Results: 04/04/18 08:14 04/04/18 08:14 04/04/18 04/04/18 08:14 08:14 WBC 6.5 RBC 4.58 Hgb 9.8 L Hct 30.6 L MCV 67 L MCH 21.3 L MCHC 31.9 L RDW 18.5 H Plt Count 306 Seg Neutrophils % Not Reportable Lymphocytes % Not Reportable Monocytes % Not Reportable Eosinophils % Not Reportable Basophils % Not Reportable Absolute Neutrophils Not Reportable Absolute Lymphocytes Not Reportable Absolute Monocytes Not Reportable Absolute Eosinophils Not Reportable Absolute Basophils Not Reportable Sodium 141.4 Potassium 4.0 Chloride 103 Carbon Dioxide 25 Anion Gap 13 BUN 10 Creatinine 0.69 Est GFR ( Amer) > 60 Est GFR (Non-Af Amer) > 60 Glucose 100 Calcium 9.8 Total Bilirubin 0.7 AST 169 H ALT 318 H Alkaline Phosphatase 120 Total Protein 7.7 Albumin 4.1 Lipase 74.9 Assessment & Plan - Diagnosis (1) Chronic cholecystitis with calculus Is this a current diagnosis for this admission?: Yes - Time Time Spent with patient: 15-24 minutes - Plan Summary Plan Summary: Increse diet OK to disch f-u surg clinic in 1-2 weeks. Need further medical f/u for elevated LFTs due to JOHN PAUL
--- NOTE | 2018-04-04 14:46 | PDOC DISCHARGE SUMMARY ---
General - Admit/Disc Date/PCP Admission Date/Primary Care Provider: 04/02/18 14:14 MERON CUMMINGS MD Discharge Date: 04/04/18 - Discharge Diagnosis (1) Gallbladder calculus with acute cholecystitis Is this a current diagnosis for this admission?: Yes (2) Elevated liver enzymes Is this a current diagnosis for this admission?: Yes (3) Gastro-esophageal reflux Is this a current diagnosis for this admission?: Yes - Additional Information Resuscitation Status: Full Code Prescriptions: Dexlansoprazole [Dexilant] 60 mg PO DAILY #90 cap.bp Home Medications: Cholecalciferol (Vitamin D3) [Vitamin D3 1000 Unit Tablet] 1,000 unit PO DAILY 04/02/18 Montelukast Sodium [Singulair 10 mg Tablet] 10 mg PO QHS 04/02/18 Dexlansoprazole [Dexilant] 60 mg PO DAILY #90 cap.bp 04/04/18 History of Present Illness History of Present Illness: ORLANDO SMITH is a 37 year old female, she came to the office today for evaluation of epigastric pain, she recently had total hysterectomy on 2017 she was in the emergency room on 2017 for evaluation of epigastric pain, abdominal pain she stated that her symptoms started after she ate [employer], in the emergency room she said she was evaluated she was given IV fluids and she was discharged home. She admitted to vomiting, she said she is not able to keep any food down, the pain is aggravated with food intake, she was tender on palpation of the epigastrium, acute cholelithiasis was suspected, a stat ultrasound was obtained, it demonstrated multiple gallstones associated with thickening of the gallbladder wall with pericholecystic fluid consistent with acute calculus cholecystitis. She was advised to be admitted directly to the hospital but they have no bed available in the hospital and she was directed by the nurse billposting supervisor to the emergency room. She would need interval cholecystectomy, consultation will be obtained from surgery Hospital Course Hospital Course: She was admitted for the management of acute calculus cholecystitis, she was seen by the surgeon she underwent laparoscopic cholecystectomy without complication. She has elevated liver enzymes which could be secondary to gallstones or other causes, hepatitis panel ordered result pending, it could also be fatty liver she is obese. Physical Exam Vital Signs: Temp Pulse Resp BP Pulse Ox 97.8 F 78 13 127/86 H 100 04/04/18 11:15 04/04/18 11:15 04/04/18 11:15 04/04/18 11:15 04/04/18 11:15 Intake & Output 04/03/18 04/04/18 04/05/18 06:59 06:59 06:59 Intake Total 318 4294 100 Output Total 915 Balance 318 3379 100 Weight 132.2 kg General appearance: PRESENT: no acute distress, well-developed, well-nourished Head exam: PRESENT: atraumatic, normocephalic Eye exam: PRESENT: conjunctiva pink, EOMI, PERRLA Ear exam: PRESENT: normal external ear exam Mouth exam: PRESENT: moist, tongue midline Neck exam: PRESENT: full ROM Respiratory exam: PRESENT: clear to auscultation adam Cardiovascular exam: PRESENT: RRR, +S1, +S2 Pulses: PRESENT: normal dorsalis pedis pul, +2 pedal pulses bilateral Vascular exam: PRESENT: normal capillary refill GI/Abdominal exam: PRESENT: normal bowel sounds, soft Rectal exam: PRESENT: deferred Neurological exam: PRESENT: alert, awake, oriented to person, oriented to place , oriented to time, oriented to situation, CN II-XII grossly intact Psychiatric exam: PRESENT: appropriate affect, normal mood Skin exam: PRESENT: dry, intact, warm Results Laboratory Results: 04/04/18 08:14 04/04/18 08:14 04/04/18 04/04/18 08:14 08:14 WBC 6.5 RBC 4.58 Hgb 9.8 L Hct 30.6 L MCV 67 L MCH 21.3 L MCHC 31.9 L RDW 18.5 H Plt Count 306 Seg Neutrophils % Not Reportable Lymphocytes % Not Reportable Monocytes % Not Reportable Eosinophils % Not Reportable Basophils % Not Reportable Absolute Neutrophils Not Reportable Absolute Lymphocytes Not Reportable Absolute Monocytes Not Reportable Absolute Eosinophils Not Reportable Absolute Basophils Not Reportable Sodium 141.4 Potassium 4.0 Chloride 103 Carbon Dioxide 25 Anion Gap 13 BUN 10 Creatinine 0.69 Est GFR ( Amer) > 60 Est GFR (Non-Af Amer) > 60 Glucose 100 Calcium 9.8 Total Bilirubin 0.7 AST 169 H ALT 318 H Alkaline Phosphatase 120 Total Protein 7.7 Albumin 4.1 Lipase 74.9 Qualifiers - * PATIENT BEING DISCHARGED WITH ANY OF THE FOLLOWING DIAGNOSIS: No
[2018-04-04 15:17] VITALS: BP 121/69
[2018-04-08 15:39] LABS: HEPATITIS A AB IGM Negative (Negative); HEPATITIS B CORE AB IGM Negative (Negative); HEPATITS B SURFACE ANTIGEN Negative (Negative)
[2018-04-09 07:09] LABS: HEPATITIS C VIRUS ANTIBODY <0.1 s/co ratio (0.0-0.9)
== END 2018-04-04 16:00 | disposition home or self-care (01) | DRG 418 ==
LOC: ER 13:43 → EH 14:14 → 4N 22:27
PROVIDERS: ADMIT Internal Medicine; ATTEND Internal Medicine
PROC: 0FT44ZZ Resection of Gallbladder, Percutaneous Endoscopic Approach (ICD-10-PCS; principal; 2018-04-03 13:30)
DX: K80.10 Calculus of gallbladder with chronic cholecystitis without obstruction (principal); Z68.42 Body mass index [BMI] 45.0-49.9, adult; K66.0 Peritoneal adhesions (postprocedural) (postinfection); R94.5 Abnormal results of liver function studies; E66.01 Morbid (severe) obesity due to excess calories; K21.9 Gastro-esophageal reflux disease without esophagitis; K44.9 Diaphragmatic hernia without obstruction or gangrene; Z98.51 Tubal ligation status; Z98.891 History of uterine scar from previous surgery; Z88.2 Allergy status to sulfonamides; Z90.710 Acquired absence of both cervix and uterus
CPT/HCPCS: 36415; 790; 80048; 80053; 80074; 80076; 82150; 83690; 85025; 88304; 99285; J0131; J0295; J0330; J0690; J1100; J1885; J2250; J2270; J2405; J2550; J2704; J3010; J3490; J7120

== ENCOUNTER → 2018-04-02 | Outpatient (CLI) | payer BC ==
--- NOTE | 2018-04-02 11:22 | RADIOLOGY REPORT (SQ) ---
EXAM DESCRIPTION: U/S ABDOMEN LIMITED W/O DOP COMPLETED DATE/TIME: 04/02/2018 11:05 am REASON FOR STUDY: EPIGASTRIC PAIN (R10.13) R10.13 EPIGASTRIC PAIN COMPARISON: None. TECHNIQUE: Dynamic and static grayscale images acquired of the abdomen and recorded on PACS. Additio nal selected color Doppler and spectral images recorded. LIMITATIONS: None. FINDINGS: PANCREAS: No masses. Visualized pancreatic duct normal caliber. LIVER: No masses. Echotexture normal. LIVER VASCULATURE: Normal directional flow of the main portal vein. GALLBLADDER: Gallstones are identified. There is borderline thickening of the gallbladder wall measu ring 3 mm. A tiny amount of pericholecystic fluid is identified and a tiny amount of fluid is identi fied along the inferior margin of the right lobe of the liver. The possibility of cholecystitis shou ld be considered. INTRAHEPATIC DUCTS AND COMMON DUCT: CBD and intrahepatic ducts normal caliber. No filling defects. INFERIOR VENA CAVA: Normal flow. AORTA: No aneurysm. RIGHT KIDNEY: 11.5 cm in length. Normal echogenicity. No solid or suspicious masses. No hydronephros is. No calcifications. PERITONEAL AND RIGHT PLEURAL SPACE: No ascites or effusions. OTHER: No other significant findings. IMPRESSION: Multiple gallstones are identified with associated borderline thickening of the gallblad abhinav wall and tiny amount of pericholecystic fluid as noted above. The possibility of cholecystitis s hould be considered. Other findings as noted above TECHNICAL DOCUMENTATION: JOB ID: [id number] [employer]- All Rights Reserved Reading location - IP/workstation name: [email or web address]
== END ==
LOC: RAD 10:34
PROVIDERS: ATTEND Internal Medicine
DX: R10.13 Epigastric pain (principal); K80.80 Other cholelithiasis without obstruction
CPT/HCPCS: 76705

== ENCOUNTER → 2018-06-27 | Outpatient (CLI) | payer BC ==
--- NOTE | 2018-06-27 12:38 | RADIOLOGY REPORT (SQ) ---
EXAM DESCRIPTION: CHEST PA/LATERAL COMPLETED DATE/TIME: 06/27/2018 12:15 pm REASON FOR STUDY: R05 COUGH COMPARISON: None. EXAM PARAMETERS: NUMBER OF VIEWS: two views TECHNIQUE: Digital Frontal and Lateral radiographic views of the chest acquired. RADIATION DOSE: NA LIMITATIONS: none FINDINGS: LUNGS AND PLEURA: No opacities, masses or pneumothorax. No pleural effusion. MEDIASTINUM AND HILAR STRUCTURES: No masses or contour abnormalities. HEART AND VASCULAR STRUCTURES: Cardiomegaly. No evidence for failure. BONES: No acute findings. HARDWARE: None in the chest. OTHER: No other significant finding. IMPRESSION: No acute findings in the chest. TECHNICAL DOCUMENTATION: JOB ID: [id number] [employer]- All Rights Reserved Reading location - IP/workstation name: [email or web address]
== END ==
LOC: OD 11:48
PROVIDERS: ATTEND Nurse Practitioner Family
DX: R05 Cough (principal)
CPT/HCPCS: 71046

== ENCOUNTER → 2020-06-07 | Outpatient (CLI) | payer BC ==
[2020-06-07 08:16] LABS: ABSOLUTE EOSINOPHILS # (AUTO) 0.2 10^3/uL (0.0-0.6); ABSOLUTE LYMPHOCYTES (AUTO) 2.2 10^3/uL (0.5-4.7); ABSOLUTE MONOCYTES (AUTO) 0.3 10^3/uL (0.1-1.4); ABSOLUTE NEUT (AUTO) 2.6 10^3/uL (1.7-8.2); BASOPHILS % (AUTO) 0.4 % (0-2); HEMATOCRIT 40.8 % (36.0-47.0); HEMOGLOBIN 13.8 g/dL (12.0-15.5); LYMPHOCYTES % (AUTO) 41.5 % (13-45); MEAN CORPUSCULAR HEMOGLOBIN 27.7 pg (27.0-33.4); MEAN CORPUSCULAR HGB CONC 33.8 g/dL (32.0-36.0); MEAN CORPUSCULAR VOLUME 82 fl (80-97); MONOCYTES % (AUTO) 6.3 % (3-13); PLATELET COUNT 232 10^3/uL (150-450); RED BLOOD COUNT 4.97 10^6/uL (3.72-5.28); RED CELL DISTRIBUTION WIDTH 14.9 % (11.5-14.0); SEGMENTED NEUTROPHILS % (AUTO) 48.8 % (42-78); TOTAL CELLS COUNTED % (AUTO) 100 %; WHITE BLOOD COUNT 5.3 10^3/uL (4.0-10.5)
[2020-06-07 08:17] LABS: APPEARANCE,URINE CLEAR; BILIRUBIN,URINE NEGATIVE (NEGATIVE); COLOR,URINE YELLOW; GLUCOSE, URINE NEGATIVE (NEGATIVE); KETONES,URINE NEGATIVE (NEGATIVE); LEUKOCYTE ESTERASE,URINE NEGATIVE (NEGATIVE); NITRITE,URINE NEGATIVE (NEGATIVE); PROTEIN,URINE NEGATIVE (NEGATIVE); URINE SPECIFIC GRAVITY 1.021; UROBILINOGEN,URINE NEGATIVE mg/dL (<2.0)
[2020-06-07 08:39] LABS: ALBUMIN 5.1 g/dL (3.5-5.0); ALKALINE PHOSPHATASE 81 U/L (38-126); ANION GAP 11 (5-19); ASPARTATE AMINO TRANSFERASE 45 U/L (14-36); BILIRUBIN,DIRECT 0.3 mg/dL (0.0-0.4); BILIRUBIN,TOTAL 0.6 mg/dL (0.2-1.3); BLOOD UREA NITROGEN 17 mg/dL (7-20); CARBON DIOXIDE 25 mmol/L (22-30); CHLORIDE 101 mmol/L (98-107); CHOLESTEROL 186.41 mg/dL (0-200); GLUCOSE 112 mg/dL (75-110); POTASSIUM 4.5 mmol/L (3.6-5.0); TOTAL PROTEIN 8.6 g/dL (6.3-8.2); TRIGLYCERIDES 115 mg/dL (<150); URIC ACID 6.6 mg/dL (2.5-7.0)
[2020-06-07 08:50] LABS: DIRECT LDL 92 mg/dL (<100)
== END ==
LOC: OD 06:57
PROVIDERS: ATTEND Internal Medicine
DX: I10 Essential (primary) hypertension (principal); E55.9 Vitamin D deficiency, unspecified
CPT/HCPCS: 36415; 80053; 80061; 81001; 82306; 82607; 83036; 84436; 84443; 84550; 85025

== ENCOUNTER → 2020-09-21 | Outpatient (CLI) | payer BC ==
[~2020-09-21] MED LIST changes: -CEFAZOLIN 1 GM/D5W RTU 1 GM/50 ML RTUPB IV PRN; +COVID-19 VACCINE (PFIZER)/PF 30 MCG/0.3 ML VIAL IM ONE; +EPINEPHRINE INJ/PF 1 MG/1 ML AMPULE IM PRN; -LACTATED RINGERS 1000 ML IV PRN; -LIDOCAINE 0.5% INJ-PF (5 MG/ML) 50 ML SDV SUBCUT PRN
== END ==
LOC: EMPHEALTH 15:32
PROVIDERS: ATTEND Internal Medicine
DX: Z23 Encounter for immunization (principal)
CPT/HCPCS: 91300